=== PATIENT | female | born 1965 | race Caucasian/White ===

== ENCOUNTER 2016-07-12 15:08 | Emergency (ER) | payer MEDICARE ==
[2016-07-12] MEDS ORDERED: Sodium Chloride 0.9% 10 ML Syringe FLUSH PRN (15:30)
[2016-07-12] MEDS ORDERED: Phenazopyridine 200 MG Tab PO ONE (15:30)
[2016-07-12] MEDS ORDERED: Ketorolac 30 MG/ML SDV IVPUSH ONE (15:30)
[2016-07-12] MEDS ORDERED: Sodium Chloride 0.9% 1,000 ML IV SCH (15:30)
[2016-07-12] MEDS ORDERED: Sodium Chloride 0.9% 2.5 ML Syringe FLUSH PRN (15:30)
[2016-07-12] MEDS ORDERED: Ondansetron 4 MG/2 ML SDV IVPUSH ONE (15:46)
[2016-07-12 16:04] LABS: CHLORIDE,CL 111 mmol/L (98-110); SODIUM,NA 142 mmol/L (136-146)
--- NOTE | 2016-07-12 16:18 | EDM.PDOC ---
ED HPI RENAL/ - General Chief Complaint: Genitourinary Problem Stated Complaint: KIDNEY PAINS Time Seen by Provider: 07/12/16 15:14 Source of Information: Reports: Patient History Limitations: Reports: No limitations - History of Present Illness INITIAL COMMENTS - FREE TEXT/NARRATIVE: HISTORY AND PHYSICAL: History of present illness: [51-year-old female with a history of ureteral stricture on the right requiring multiple stents previously and which the vitalized her right kidney to 11% function, now presents to the emergency department complaining of ureteral colic. patient thinks she is having spasm in her right ureter which she says she typically gets when she gets urinary tract infection and kidney infection. Patient has had a stone before but she doesn't feel this pain is likely to be a stone. No fevers chills sweats or shaking chills. No nausea vomiting or diarrhea. No abdominal pain or pelvic pain. Patient has had a hysterectomy previously. No hematuria and No other complaints 3 patient not currently on any antibiotics Review of systems: As per history of present illness and below otherwise all systems reviewed and negative. Past medical history: As per history of present illness and as reviewed below otherwise noncontributory. Surgical history: As per history of present illness and as reviewed below otherwise noncontributory. Social history: No reported history of drug or alcohol abuse. Family history: As per history of present illness and as reviewed below otherwise noncontributory. Physical exam: HEENT: Atraumatic, normocephalic, pupils reactive, negative for conjunctival pallor or scleral icterus, mucous membranes moist, throat clear, neck supple, nontender, trachea midline. Lungs: Clear to auscultation, breath sounds equal bilaterally, chest nontender. Heart: S1S2, regular, negative for clicks, rubs, or JVD. Abdomen: Soft, nondistended, nontender. Negative for masses or hepatosplenomegaly. Positive right CVAT, Negative for left costovertebral tenderness. Pelvis: Stable nontender. Genitourinary: Deferred. Rectal: Deferred. Extremities: Atraumatic, negative for cords or calf pain. Neurovascular unremarkable. Neuro: Awake, alert, oriented. Motor and sensory unremarkable throughout. Exam nonfocal. Diagnostics: [] Therapeutics: [] Impression: [] Plan: [Signs and symptoms consistent with possible pyelonephritis in a patient with a history of multiple prior episodes and a ureteral stricture which required multiple previous stenting interventions by the urologist. IV anti-inflammatory medicine administered as well as IV fluids. Labs and urinalysis pending as well as noncontrast CT to rule out stone or obstructive phenomena. Noncontrast CT of the abdomen and pelvis negative for kidney ureteral or bladder abnormality. Urinalysis with microscopic hematuria and not consistent with infection. Patient blood pressure is elevated. She has no formal diagnosis of hypertension and is not treated for this. Acute Hypertension discussed with patient she is aware to followup with PCP for reevaluation and treatment as needed. Creatinine unremarkable. Vital signs stable is well-appearing on reevaluation prior to discharge. No further workup or treatment indicated at this time. Call placed to patients urologist Dr. Weber in [facility]. Apparently he's not available and no one is covering for him. Patient agrees with outpatient followup and strict return precautions given Definitive disposition and diagnosis as appropriate pending reevaluation and review of above. - Related Data Allergies/ADRs: Allergies Allergy/AdvReac Type Severity Reaction Status Date / Time lisinopril Allergy Hives Verified 07/12/16 15:32 tramadol Allergy Other Verified 07/12/16 15:32 trazodone Allergy Other Verified 07/12/16 15:32 Home Meds: Home Meds Levothyroxine Sodium [Synthroid] 120 mcg PO DAILY 07/12/16 [History] Ondansetron [Zofran ODT] 4 mg SL Q4H PRN #30 tab.dis 07/12/16 [Rx] Tamsulosin HCl [Flomax] 0.4 mg PO DAILY #7 cap.er.24h 07/12/16 [Rx] Past Medical History HEENT History: Reports: Impaired vision Cardiovascular History: Reports: High cholesterol, Hypertension Respiratory History: Reports: None Gastrointestinal History: Reports: None Genitourinary History: Reports: Chronic renal insuffiency, Pyelonephritis, UTI, recurrent [employer] History: Reports: Endometriosis Musculoskeletal History: Reports: None Neurological History: Reports: None Psychiatric History: Reports: None Endocrine/Metabolic History: Reports: Hypothyroidism Hematologic History: Reports: None Immunologic History: Reports: None Oncologic (Cancer) History: Reports: None Dermatologic History: Reports: None - Infectious Disease History Infectious Disease History: Reports: None - Past Surgical History Head Surgeries/Procedures: Reports: None HEENT Surgical History: Reports: Adenoidectomy, Tonsillectomy GI Surgical History: Reports: Appendectomy, Bariatric procedure, Cholecystectomy Female Surgical History: Reports: Hysterectomy, Ureteral stent Musculoskeletal Surgical History: Reports: None Social & Family History - Family History Family Medical History: Noncontributory - Tobacco Use Smoking Status *Q: Current Every Day Smoker Years of Tobacco use: 10 Packs/Tins Daily: 0.2 - Caffeine Use Caffeine Use: Reports: Coffee Caffeine Use Comment: 1/day - Recreational Drug Use Recreational Drug Use: No ED ROS GENERAL - Review of Systems Review Of Systems: See Below (Per history of present illness) ED EXAM, RENAL/ - Physical Exam Exam: See Below (Per history of present illness) Course - Vital Signs Last Recorded V/S: Last Vital Signs Temp 37.1 C 07/12/16 16:19 Pulse 65 07/12/16 16:56 Resp 15 07/12/16 16:56 BP 139/98 H 07/12/16 16:56 Pulse Ox 96 07/12/16 16:56 - Orders/Labs/Meds Orders: Active Orders 24 hr Category Date Time Status Abdomen Pelvis wo Cont [CT] Stat Exams 07/12/16 15:31 Taken Sodium Chloride 0.9% [Normal Saline] 1,000 ml Med 07/12/16 15:30 Active IV ASDIRECTED Sodium Chloride 0.9% [Saline Flush] Med 07/12/16 15:30 Active 10 ml FLUSH ASDIRECTED PRN Sodium Chloride 0.9% [Saline Flush] Med 07/12/16 15:30 Active 2.5 ml FLUSH ASDIRECTED PRN Peripheral IV Insertion Adult [OM.PC] Stat Oth 07/12/16 15:30 Ordered Medication Orders Sodium Chloride (Normal Saline) 1,000 mls @ 999 mls/hr IV ASDIRECTED CONCEPCION Last Admin: 07/12/16 15:39 Dose: 999 mls/hr Sodium Chloride (Saline Flush) 10 ml FLUSH ASDIRECTED PRN PRN Reason: Keep Vein Open Last Admin: 07/12/16 15:39 Dose: 10 ml Sodium Chloride (Saline Flush) 2.5 ml FLUSH ASDIRECTED PRN PRN Reason: Keep Vein Open Last Admin: 07/12/16 15:39 Dose: 2.5 ml Labs: Laboratory Tests 07/12/16 07/12/16 Range/Units 15:21 15:38 Sodium 142 (136-146) mmol/L Potassium 4.4 (3.5-5.1) mmol/L Chloride 111 H (98-110) mmol/L Carbon Dioxide 22 (21-31) mmol/L BUN 11 (6.0-23.0) mg/dL Creatinine 0.7 (0.6-1.5) mg/dL Est Cr Clr Drug Dosing TNP Estimated GFR (MDRD) > 60.0 ml/min Glucose 89 (60-110) mg/dL Calcium 8.8 (8.8-10.8) mg/dL Total Bilirubin 0.4 (0.1-1.5) mg/dL AST 32 (5-40) IU/L ALT 33 (8-54) IU/L Alkaline Phosphatase 135 (40-150) Total Protein 6.6 (6.0-8.0) g/dL Albumin 4.0 (3.5-5.0) g/dL Globulin 2.6 (2.0-3.5) g/dL Albumin/Globulin Ratio 1.5 (1.3-2.8) Urine Color YELLOW Urine Appearance SLT CLOUDY Urine pH 8.0 (5.0-8.0) Ur Specific [place] 1.015 (1.001-1.035) Urine Protein TRACE (NEGATIVE) mg/dL Urine Glucose (UA) NEGATIVE (NEGATIVE) mg/dL Urine Ketones TRACE H (NEGATIVE) mg/dL Urine Occult Blood LARGE H (NEGATIVE) Urine Nitrite NEGATIVE (NEGATIVE) Urine Bilirubin SMALL H (NEGATIVE) Urine Ictotest NEGATIVE Urine Urobilinogen 4.0 H (<2.0) EU/dL Ur Leukocyte Esterase TRACE (NEGATIVE) Urine RBC 75-100 H (0-2/HPF) Urine WBC 1-3 (0-5/HPF) Ur Epithelial Cells FEW (NONE-FEW) Calcium Oxalate Crystal MANY (NEGATIVE) Amorphous Sediment MANY (NEGATIVE) Urine Bacteria FEW (NEGATIVE) Meds: Medications Generic Name Dose Route Start Last Admin Trade Name Freq PRN Reason Stop Dose Admin Sodium Chloride 1,000 mls @ 999 mls/hr 07/12/16 15:30 07/12/16 15:39 Normal Saline IV 999 mls/hr ASDIRECTED CONCEPCION Administration Sodium Chloride 10 ml 07/12/16 15:30 07/12/16 15:39 Saline Flush FLUSH 10 ml ASDIRECTED PRN Administration Keep Vein Open Sodium Chloride 2.5 ml 07/12/16 15:30 07/12/16 15:39 Saline Flush FLUSH 2.5 ml ASDIRECTED PRN Administration Keep Vein Open Discontinued Medications Generic Name Dose Route Start Last Admin Trade Name Freq PRN Reason Stop Dose Admin Hydromorphone HCl 0.5 mg 07/12/16 16:21 07/12/16 16:27 Dilaudid IVPUSH 07/12/16 16:22 0.5 mg ASDIRECTED ONE Administration Ketorolac Tromethamine 30 mg 07/12/16 15:30 07/12/16 15:41 Toradol IVPUSH 07/12/16 15:31 30 mg ONETIME ONE Administration Ondansetron HCl 4 mg 07/12/16 15:46 07/12/16 16:14 Zofran IVPUSH 07/12/16 15:47 4 mg ONETIME ONE Administration Phenazopyridine HCl 200 mg 07/12/16 15:30 07/12/16 15:41 Pyridium PO 07/12/16 15:31 200 mg ONETIME ONE Administration Departure - Departure Time of Disposition: 16:55 Disposition: Home, Self-Care 01 Condition: good Clinical Impression: Hypertension, Microscopic hematuria, Flank pain, acute Prescriptions: Ondansetron [Zofran ODT] 4 mg SL Q4H PRN #30 tab.dis PRN Reason: Nausea Tamsulosin HCl [Flomax] 0.4 mg PO DAILY #7 cap.er.24h Referrals: PCP,None [Primary Care Provider] - Forms: ED Department Discharge Additional Instructions: Is unclear what the cause of your flank pain was today. He did not have a kidney infection and your CAT scan showed no stones, evidence of obstruction, or distention of your ureters or kidneys. Her labs were unremarkable in your creatinine was normal. Your urinalysis did show a microscopic hematuria which, as you know, means blood in the urine. Followup with your urologist or if you are still in the area you can followup with Dr. Ralph our [place] urologist, for reevaluation and further workup and treatment as needed. Her blood pressure was elevated today. This could be because you were in pain, however we cannot rule out that your of falling essential hypertension which would require treatment. Initial blood pressure today was 144/106 and that improved to 139/ 98. [facility] and to initiate antihypertensive therapy if indicated. Take ibuprofen and Tylenol as needed for pain. Return for new severe or worsening symptoms. - My Orders Last 24 Hours: My Active Orders 07/12/16 15:30 Sodium Chloride 0.9% [Normal Saline] 1,000 ml IV ASDIRECTED Sodium Chloride 0.9% [Saline Flush] 10 ml FLUSH ASDIRECTED PRN Sodium Chloride 0.9% [Saline Flush] 2.5 ml FLUSH ASDIRECTED PRN Peripheral IV Insertion Adult [OM.PC] Stat 07/12/16 15:31 Abdomen Pelvis wo Cont [CT] Stat - Assessment/Plan Last 24 Hours: My Active Orders 07/12/16 15:30 Sodium Chloride 0.9% [Normal Saline] 1,000 ml IV ASDIRECTED Sodium Chloride 0.9% [Saline Flush] 10 ml FLUSH ASDIRECTED PRN Sodium Chloride 0.9% [Saline Flush] 2.5 ml FLUSH ASDIRECTED PRN Peripheral IV Insertion Adult [OM.PC] Stat 07/12/16 15:31 Abdomen Pelvis wo Cont [CT] Stat
[2016-07-12] MEDS ORDERED: HYDROmorphone 1 MG/ML Syringe IVPUSH ONE (16:21)
[2016-07-12 16:57] VITALS: BP 139/98
--- NOTE | 2016-07-13 18:55 | CT ---
EXAM DATE: 07/12/16 PATIENT'S AGE: 51 Patient: MAYKEL GRAHAM Facility: [place], [place] Site . Site : [id number] Study: CT Abdomen/Pelvis [id number]/2/2017 3:54:49 PM Ordering Physician: Matt Frazier Final Report: INDICATION: Right flank pain with history of prior nephrolithiasis. TECHNIQUE: CT abdomen and pelvis without contrast. COMPARISON: None FINDINGS: Lower chest: Granulomas left base. Liver: Unremarkable. Spleen: Tiny punctate calcified granulomas. Pancreas: Unremarkable. Gallbladder and bile ducts: Cholecystectomy. Kidneys: Unremarkable. No kidney or ureteral stones and no hydronephrosis. Adrenal glands: Unremarkable. GI tract: Gastric bypass change. Appendectomy changes. No dilated or inflamed large or small bowel. Vascular structures: Unremarkable. Lymph nodes: Unremarkable. Miscellaneous: Unremarkable. No free air or significant free fluid. Mild diffuse soft tissue edema. Pelvic Organs: Hysterectomy. Bones: Unremarkable for age. IMPRESSION: No nephrolithiasis or definite source for pain identified. Prior gastric bypass, cholecystectomy, appendectomy and hysterectomy. Sequela of remote granulomatous infection. Dictated by Jose Juan Downs MD @ Jul 12 2016 4:09PM (Electronic Signature) Report Signed by Proxy and Original Signed Document filed in the Medical Record. MTDD
== END 2016-07-12 17:20 | disposition home or self-care (01) ==
LOC: MW.ED 15:08
DX: I10 Essential (primary) hypertension (principal); R31.29 Other microscopic hematuria; R10.9 Unspecified abdominal pain; N18.9 Chronic kidney disease, unspecified; E03.9 Hypothyroidism, unspecified; F17.210 Nicotine dependence, cigarettes, uncomplicated; Z79.899 Other long term (current) drug therapy; Z90.49 Acquired absence of other specified parts of digestive tract; Z98.84 Bariatric surgery status; Z90.710 Acquired absence of both cervix and uterus; Z88.8 Allergy status to other drugs, medicaments and biological substances
CPT/HCPCS: 36415; 74176; 80053; 81001; 96361; 96374; 96375; 99284; A9270; J1170; J1885; J2405; J7040